=== PATIENT | female | born 2000 | race Caucasian/White ===

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

== ENCOUNTER → 2022-03-06 15:24 | Outpatient (BNVA) | payer MEDICAID, SELFPAY | PROVIDERS: PCP Family Medicine; Visit Provider Family Medicine Adult Medicine | DX: S92.512A Displaced fracture of proximal phalanx of left lesser toe(s), initial encounter for closed fracture (principal); W22.03XA Walked into furniture, initial encounter | CPT/HCPCS: 73630 ==

== ENCOUNTER 2023-02-22 14:02 | Outpatient (CLI) | payer MEDICAID, SELFPAY ==
--- NOTE | 2023-02-22 14:05 | USR_ITS ---
PROCEDURE INFORMATION: Exam: US First Trimester, Transabdominal Exam date and time: 02/22/2023 2:38 PM Age: 22 years old Clinical indication: Screening exam; Routine US, uterus; Additional info: Irregular menstruation TECHNIQUE: Imaging protocol: Real-time transabdominal obstetrical ultrasound of the maternal pelvis and a first trimester , less than 14 weeks 0 days, with image documentation. COMPARISON: US OB follow up [facility] 08/20/2020 10:20 AM FINDINGS: GESTATION: Gestation: Intrauterine gestation. Yolk sac is unremarkable. Embryonic/ heart rate: 171 bpm Extra-embryonic membranes/Placenta: Unremarkable. No subchorionic bleed. Amniotic fluid: Amniotic and extra-amniotic fluid are normal for gestational age. BIOMETRY: Gestational age (AUA): 10 w 4 d [place] length: 36.1 mm. EGA (CRL) is 10 w 4 d MATERNAL: Uterus: Unremarkable. Cervix: Unremarkable. Right ovary/adnexa: Obscured by lack of adequate acoustic window. Left ovary/adnexa: Obscured by lack of adequate acoustic window. Intraperitoneal space: No intraperitoneal free fluid. US/US OB <= 14 weeks fetus [id number] IMPRESSION: Single living IUP.
== END 2023-02-22 14:03 | disposition home or self-care (01) ==
LOC: RAD 14:03
PROVIDERS: PCP Family Medicine; Visit Provider Family Medicine
DX: Z34.91 Encounter for supervision of normal pregnancy, unspecified, first trimester (principal); Z3A.10 10 weeks gestation of pregnancy; N92.6 Irregular menstruation, unspecified
CPT/HCPCS: 76801

== ENCOUNTER 2023-08-27 14:54 | Inpatient (IN) | payer MEDICAID, SELFPAY ==
[2023-08-27] VITALS (50 sets, daily range): BP systolic 115–184; BP diastolic 53–114; PULSE 97–117; RESP 16; TEMP 36.3–36.6; O2SAT 99–100; BMI 47.3
[2023-08-27 13:10] LABS: Basophils % 0.1 %; Eosinophils # 0.1 10^3/uL (0.0-0.8); Eosinophils % 0.7 %; Hematocrit 40.1 % (36-47); Lymphocytes # 1.5 10^3/uL (0.8-4.8); Lymphocytes % 14.8 %; Mean Corpuscular HGB Conc 32.9 g/dL (30-55); Mean Corpuscular Hemoglobin 27.2 pg (27-33); Mean Corpuscular Volume 82.5 fl (85-98); Mean Platelet Volume 11.2 fL (7.4-10.4); Monocytes # 0.5 10^3/uL (0.2-0.9); Monocytes % 4.5 %; Neutrophils # 8.29 10^3/uL (1.8-7.7); Neutrophils % 79.4 %; Nucleated Red Blood Cells % 0 %; Platelet Count 176 10^3/cmm (157-399); Red Blood Count 4.86 10^6/uL (3.85-5.65); Red Cell Distribution Width 14.7 % (12.1-15.1); White Blood Count 10.43 10^3/uL (3.29-11.43)
[2023-08-27 13:21] LABS: Add Urine Microscopic? YES; Bilirubin Urine Neg (Negative); Blood Urine Neg (Negative); Glucose Urine UA Norm (Normal); Ketones Urine Negative (Negative); Leukocyte Esterase Urine 2+ (Negative); Nitrate Urine Negative (Negative); Protein Urine Neg (Negative); Urine Appearance Cloudy (CLEAR); Urine Color Yellow (Yellow); Urobilinogen Urine Norm (Negative); pH Urine 8 (5-7)
[2023-08-27 13:23] LABS: Add Urine Culture? No; Bacteria Urine 1+ /hpf; Squamous Epithelial Cell Urine 15-25 /hpf (0-5); WBC Urine 15-25 /hpf (0-5)
[2023-08-27 13:28] LABS: Alanine Aminotransferase 8 U/L (0-33); Albumin Level 3.5 g/dL (3.5-5.2); Alkaline Phosphatase 168 U/L (35-105); Anion Gap 19.1 (5-19); Aspartate Amino Transferase 12 U/L (0-32); Blood Urea Nitrogen 5 mg/dL (6-20); Calcium 8.8 mg/dL (8.5-10.5); Carbon Dioxide 18 mmol/L (22-29); Chloride 102 mmol/L (98-107); Creatinine Clr Calc Pharmacy 561.7646; Globulin 2.8 g/dL (1.3-4.6); Glomerular Filtration Rate 448.4 mL/min (90-130); Glucose 79 mg/dL (65-115); Osmolality Calculated 276 mOsm/kg (285-295); Potassium 4.1 mmol/L (3.5-5.1); Sodium 135 mmol/L (136-145); Total Bilirubin 0.3 mg/dL (0.15-1.2); Total Protein 6.3 g/dL (6.6-8.7); Uric Acid 4.9 mg/dL (2.4-5.7)
[2023-08-27 13:32] LABS: UPRO/UCREAT Ratio 0.15 mg/mg CR; Urine Creatinine 105 mg/dL (28-217); Urine Protein Random 16 mg/dL
[2023-08-27] MEDS: miSOPROStol 100 mcg tablet 25 MCG VAGINAL (15:35)
--- NOTE | 2023-08-27 18:04 | PM.OPHPUD ---
Labor & Delivery H&P Update Date of Procedure: August 27, 2023 Date H&P Performed: 10/26/20 Admission Diagnosis: 22-year-old 2 para 1-0-0-1 at 37 weeks and 1 day with gestational hypertension presenting for induction. Other information: The patient presented to our office today for a routine visit. During the visit her blood pressure was noted to be elevated with a systolic blood pressure greater than 140. After resting for 15+ minutes we rechecked her blood pressure again and noted that her systolic blood pressure was once again above 140 with the diastolic blood pressure of 106. As result she was sent to the OB department for further evaluation. In the OB department she was noted to have multiple elevated blood pressures including 1 severe blood pressure. As result the decision was made to induce the patient given her gestational age of 37 weeks. Otherwise, her has been relatively unremarkable. Over the last few weeks she has had some borderline blood pressures. Her size has been greater than dates and ultrasound performed on 07/09 did demonstrate an LGA baby. Her blood type is O+. Her antibody screen was negative. She is rubella nonimmune. She passed her 3-hour glucose screen. Her infectious disease profile was within normal limits. Her drug screen was negative. Related Problem List Diagnoses (1) 37 weeks gestation of : The patient's preeclamptic panel was negative. Will proceed with Cytotec 25 mcg x 1 and will adjust we will augment her labor depending on how she responds to that. (2) Gestational hypertension: A&P Assessment and plan (1) 37 weeks gestation of : Status: Acute (2) Gestational hypertension: Status: Acute
[2023-08-27] MEDS: lactated ringers 1,000 ML 999 ML IV (21:16)
[2023-08-27] MEDS: oxytocin 30 UNIT/500 ML BAG IV (21:16)
[2023-08-27] MEDS: ROPivacaine syringe 100 MG/50 ML SYRINGE 10 MG EPIDURAL (22:13)
[2023-08-27] MEDS: dextrose 5%-lactated ringers 1,000 ML 125 ML IV (22:20)
[2023-08-28] VITALS (19 sets, daily range): BP systolic 90–149; BP diastolic 49–93; PULSE 84–141; RESP 16–17; TEMP 36.6–36.9; O2SAT 97–98; BMI 47.3
[2023-08-28] MEDS: ROPivacaine syringe 100 MG/50 ML SYRINGE 10 MG EPIDURAL (01:26)
--- NOTE | 2023-08-28 02:19 | PM.DELIVERY ---
Delivery Note: Date of delivery: August 28, 2023 Pre-delivery diagnoses: 22-year-old 2 para 1-0-0-1 at 37 weeks and 2 days with gestational hypertension Post-delivery diagnoses: Status post spontaneous vaginal delivery Procedure: Spontaneous vaginal delivery Delivering Physician: Ramesh Ye Estimated blood loss (mL): 100 Pre-Delivery Course: Patient presented to the hospital due to elevated blood pressures. After taking several blood pressures in the hospital she was noted to have recurrent elevated blood pressures. A preeclamptic panel was performed and found to be negative. We elected to proceed with induction as a result. Mother was placed on Cytotec 25 mcg x 1. An amniotomy was performed. She was then placed on Pitocin. An epidural was placed. She progressed to complete without difficulty. Delivery: DELIVERY: The patient progressed to complete without difficulty. She delivered a male with a weight of 6 pounds 14 ounces with Apgars of 8, 9. The baby was delivered from the MARILU position. The baby's mouth and nose were suctioned at the site of the perineum. The baby was then completely delivered and placed on the mother's abdomen. The cord was then clamped and cut. There was no nuchal cord. There was no meconium. The placenta and 3 vessel cord were delivered intact shortly thereafter. The perineum and vaginal vault were carefully examined. No lacerations were noted. Both the mother and the baby were in stable condition. History History History 2 Term 1 0 Miscarriages/Ectopic 0 Living Children 1 A&P Assessment and plan (1) Spontaneous vaginal delivery: I anticipate routine care. We will monitor her blood pressures to make sure that she is not progressing into preeclampsia. (2) 37 weeks gestation of : (3) Gestational hypertension: Coding Level of Care Code Acute Code for Chg Fwd Diagnoses Spontaneous vaginal delivery O80 37 weeks gestation of Z3A.37 Gestational hypertension O13.9
[2023-08-28] MEDS: dextrose 5%-lactated ringers 1,000 ML 125 ML IV (02:38)
[2023-08-28] MEDS: HYDROcodone-acetaminophen 5-325 mg Tablet PO ×3 (04:45→17:45)
--- NOTE | 2023-08-28 07:53 | ANES.PREANE2 ---
Pre-Anesthetic Assessment Height/Weight: Height 1.6 m Weight 121.336 kg Temp Pulse Resp BP Pulse Ox O2 Del Method 97.9 F 110 H 16 129/75 99 Room Air 08/27/23 21:36 08/28/23 04:11 08/27/23 12:38 08/28/23 04:11 08/27/23 23:17 08/27/23 15:07 Familial anesthetic complications: none Was Beta Emerald taken within 24 hours: N/A Was Clonidine taken within 24 hours: N/A Social No alcohol and No tobacco Exam alert, oriented x 3, clear to auscultation bilaterally and regular rate & rhythm Airway Submandibular: within normal limits Cervical ROM: within normal limits Mallampati: Class II Dentition: full Anesthetic Plan ASA status: 2 Anesthesia: Regional (specify below) (Labor epidural) Medications/Allergies Home Medications Medication Instructions Recorded Confirmed Last Taken Type 1 tab PO DAILY 08/28/23 08/28/23 08/27/23 History Allergies Allergy/AdvReac Type Severity Reaction Status Date / Time No Known Allergies Allergy Verified 08/28/23 02:33 Current Medications Generic Name Dose Route Start Last Admin Trade Name Freq PRN Reason Stop Dose Admin Hydrocodone Bitart/Acetaminophen 1 - 2 tab 08/28/23 03:01 08/28/23 04:45 Hydrocodone-Acetaminophen 5-325 Mg Tablet PO 1 tab Q6H PRN Administration MODERATE TO SEVERE PAIN PFSH Anesthesia Medical History Fracture of fifth toe, left, closed No pertinent past medical history Denies diabetes, asthma, hypertension, seizures, DVT/PE PCP: None Pain in left foot Surgical History No significant past surgical history Family History Grandmother Diabetes Maternal Denies family history of Colon cancer Ovarian cancer Heart disease Hypercholesteremia Breast cancer Hypertension Uterine cancer Thyroid disease Stroke Social History Smoking and tobacco/nicotine status: never used tobacco/nicotine Substance/Drug Use: never Data Anesthesia 08/27/23 12:50 08/27/23 12:50 Short CBC 08/27/23 Range/Units 12:50 WBC 10.43 (3.29-11.43) 10^3/uL Hgb 13.20 (11.27-16.99) g/dL Hct 40.1 (36-47) % MCV 82.5 L (85-98) fl Plt Count 176 (157-399) 10^3/cmm Neut % (Auto) 79.4 % Neut # (Auto) 8.29 H (1.8-7.7) 10^3/uL BMP 08/27/23 12:50 Sodium 135 L Potassium 4.1 Chloride 102 Carbon Dioxide 18 L BUN 5 L Creatinine 0.2 L Glucose 79 Calcium 8.8 Liver Function 08/27/23 Range/Units 12:50 Total Bilirubin 0.3 (0.15-1.2) mg/dL AST 12 (0-32) U/L ALT 8 (0-33) U/L Alkaline Phosphatase 168 H (35-105) U/L Albumin 3.5 (3.5-5.2) g/dL Urine 08/27/23 Range/Units 12:45 Urine Color Yellow (Yellow) Urine Appearance Cloudy A (CLEAR) Urine pH 8 H (5-7) Ur Specific [place] 1.010 (1.005-1.030) Urine Protein Neg (Negative) Urine Glucose (UA) Norm (Normal) Urine Ketones Negative (Negative) Urine Nitrate Negative (Negative) Urine Bilirubin Neg (Negative) Ur Leukocyte Esterase 2+ H (Negative) Urine RBC None (0-2) /hpf Urine WBC 15-25 H (0-5) /hpf Cardiac Studies: No Data to Display Anesthesia Procedures Epidural Time Out Performed: Yes Consents Signed: Procedure Consent Consent: requested by attending/covering physician, from patient, risks and benefits reviewed and patient agrees to proceed Lumbar Level: L3-L4 Epidural position: sitting Epidural procedure: sterile prep of area, 1% lidocaine to numb the area, 18 g needle, neg for paresthesia, test dose given, 1.5% xylocaine 1:200k epi, placed PCEA, no systemic response, sterile dressing applied and 0.2% Ropiavacaine @ mls/hr (10) Additional Comments: FER at 7cm, cath at 12cm, bolused 5mls of 2% lido
--- NOTE | 2023-08-28 07:55 | ANE.PACU2 ---
Inpatient post-anesthesia follow up: Airway intact: Yes Vital signs: Temperature 97.9 F Pulse Rate 110 Respiratory Rate 16 Blood Pressure 129/75 Pulse Oximetry 99 Oxygen Delivery Me thod Room Air Oxygen Flow Rate Fraction of Inspir ed Oxygen Hydration adequate: Yes Nausea and vomiting: No Pain level: 2 Mental status: Baseline Epidural Start/End: Epidural Start Date: 08/27/23 Epidural Start Time: 22:00 Epidural End Date: 08/28/23 Epidural End Time: 03:00
[2023-08-28] MEDS: ibuprofen 800 mg tablet PO ×3 (08:05→20:34)
[2023-08-28] MEDS: PRENATAL VIT NO.130/IRON/FOLIC 1 EACH TABLET PO (08:05)
[2023-08-28] MEDS: docusate sodium 100 mg Capsule PO ×2 (08:05→17:45)
[2023-08-28 10:28] LABS: Hematocrit 38.8 % (36-47); Mean Corpuscular HGB Conc 32.5 g/dL (30-55); Mean Corpuscular Hemoglobin 26.9 pg (27-33); Mean Corpuscular Volume 82.9 fl (85-98); Mean Platelet Volume 11.6 fL (7.4-10.4); Platelet Count 185 10^3/cmm (157-399); Red Blood Count 4.68 10^6/uL (3.85-5.65); Red Cell Distribution Width 14.6 % (12.1-15.1); White Blood Count 13.08 10^3/uL (3.29-11.43)
[2023-08-29] MEDS: HYDROcodone-acetaminophen 5-325 mg Tablet PO (01:52)
[2023-08-29 05:00] VITALS: BP 130/91; PULSE 92; RESP 16; TEMP 37; O2SAT 98
[2023-08-29] MEDS: docusate sodium 100 mg Capsule PO (08:16)
[2023-08-29] MEDS: ibuprofen 800 mg tablet PO (08:16)
[2023-08-29] MEDS: PRENATAL VIT NO.130/IRON/FOLIC 1 EACH TABLET PO (08:16)
--- NOTE | 2023-08-29 08:52 | PM.OBGYDC ---
Discharge Providers INCIDENT COMMANDER Date of Admission: 08/27/23 14:54 Date of Discharge: 08/29/23 Attending Provider at Admission: Ramesh Ye MD Attending Provider at Discharge: Ramesh Ye MD Diagnoses at Discharge Discharge Diagnosis (1) Spontaneous vaginal delivery: Status: Acute (2) 37 weeks gestation of : Status: Acute (3) Gestational hypertension: Status: Acute Reason for Visit Reason for Visit: BP monitoring Hospital Course Hospital Course The patient presented to the hospital due to gestational hypertension. She was induced. She was placed on Cytotec and Pitocin. An epidural was placed. An amniotomy was performed. She progressed to complete and had an unremarkable delivery of a healthy appearing infant. During her labor she generally had normal blood pressures. she did have some blood pressures that were mildly elevated. She did not have severe blood pressure readings. She had no other symptoms of preeclampsia. She had good urine output. Her bleeding was within normal limits. Her pain was well-controlled. Information Peripartum Data: Infant Delivery Method: Vaginal Physical Exam Narrative: The patient is alert. She appears comfortable. Her heart has a regular rate and rhythm with no murmurs appreciated. Lungs are clear to auscultation bilaterally. Her fundus is firm and below the umbilicus. Urinary Catheter Management: Green: Cath Placed During This Visit: yes, but has since been removed by the nurse Reason for Continuing Indwelling Catheter: Decision to DC Catheter Urinary Catheter Date of Insertion: 08/28/23 Urinary Catheter Time of Insertion: 23:00 Date Urinary Catheter Removed: 08/28/23 Time Urinary Catheter Discontinued: 01:25 History History History 2 Term 1 0 Miscarriages/Ectopic 0 Living Children 1 Discharge Data Studies Completed and Pending Laboratory Results WBC 13.08 10^3/uL (3.29-11.43) H 08/28/23 10:12 RBC 4.68 10^6/uL (3.85-5.65) 08/28/23 10:12 Hgb 12.60 g/dL (11.27-16.99) 08/28/23 10:12 Hct 38.8 % (36-47) 08/28/23 10:12 MCV 82.9 fl (85-98) L 08/28/23 10:12 MCH 26.9 pg (27-33) L 08/28/23 10:12 MCHC 32.5 g/dL (30-55) 08/28/23 10:12 RDW 14.6 % (12.1-15.1) 08/28/23 10:12 Plt Count 185 10^3/cmm (157-399) 08/28/23 10:12 MPV 11.6 fL (7.4-10.4) H 08/28/23 10:12 Neut % (Auto) 79.4 % 08/27/23 12:50 Lymph % (Auto) 14.8 % 08/27/23 12:50 [place] % (Auto) 4.5 % 08/27/23 12:50 Eos % (Auto) 0.7 % 08/27/23 12:50 Baso % (Auto) 0.1 % 08/27/23 12:50 Neut # (Auto) 8.29 10^3/uL (1.8-7.7) H 08/27/23 12:50 Lymph # (Auto) 1.5 10^3/uL (0.8-4.8) 08/27/23 12:50 [place] # (Auto) 0.5 10^3/uL (0.2-0.9) 08/27/23 12:50 Eos # (Auto) 0.1 10^3/uL (0.0-0.8) 08/27/23 12:50 Baso # (Auto) 0.0 10^3/uL (0.0-0.1) 08/27/23 12:50 Nucleated RBC % (auto) 0 % 08/27/23 12:50 Nucleated RBCs # 0.0 /100WBC 08/27/23 12:50 Sodium 135 mmol/L (136-145) L 08/27/23 12:50 Potassium 4.1 mmol/L (3.5-5.1) 08/27/23 12:50 Chloride 102 mmol/L (98-107) 08/27/23 12:50 Carbon Dioxide 18 mmol/L (22-29) L 08/27/23 12:50 Anion Gap 19.1 (5-19) H 08/27/23 12:50 BUN 5 mg/dL (6-20) L 08/27/23 12:50 Creatinine 0.2 mg/dL (0.5-0.9) L 08/27/23 12:50 GFR Calculation 448.4 mL/min (90-130) H 08/27/23 12:50 Glucose 79 mg/dL (65-115) 08/27/23 12:50 Calculated Osmolality 276 mOsm/kg (285-295) L 08/27/23 12:50 Uric Acid 4.9 mg/dL (2.4-5.7) 08/27/23 12:50 Calcium 8.8 mg/dL (8.5-10.5) 08/27/23 12:50 Total Bilirubin 0.3 mg/dL (0.15-1.2) 08/27/23 12:50 AST 12 U/L (0-32) 08/27/23 12:50 ALT 8 U/L (0-33) 08/27/23 12:50 Alkaline Phosphatase 168 U/L (35-105) H 08/27/23 12:50 Total Protein 6.3 g/dL (6.6-8.7) L 08/27/23 12:50 Albumin 3.5 g/dL (3.5-5.2) 08/27/23 12:50 Globulin 2.8 g/dL (1.3-4.6) 08/27/23 12:50 Urine Color Yellow (Yellow) 08/27/23 12:45 Urine Appearance Cloudy (CLEAR) A 08/27/23 12:45 Urine pH 8 (5-7) H 08/27/23 12:45 Ur Specific [place] 1.010 (1.005-1.030) 08/27/23 12:45 Urine Protein Neg (Negative) 08/27/23 12:45 Urine Glucose (UA) Norm (Normal) 08/27/23 12:45 Urine Ketones Negative (Negative) 08/27/23 12:45 Urine Blood Neg (Negative) 08/27/23 12:45 Urine Nitrate Negative (Negative) 08/27/23 12:45 Urine Bilirubin Neg (Negative) 08/27/23 12:45 Urine Urobilinogen Norm mg/dL (Negative) 08/27/23 12:45 Ur Leukocyte Esterase 2+ (Negative) H 08/27/23 12:45 Urine RBC None /hpf (0-2) 08/27/23 12:45 Urine WBC 15-25 /hpf (0-5) H 08/27/23 12:45 Ur Squamous Epith Cells 15-25 /hpf (0-5) H 08/27/23 12:45 Amorphous Sediment Not Reportable 08/27/23 12:45 Urine Bacteria 1+ /hpf (NONE) H 08/27/23 12:45 U Random Total Protein 16 mg/dL 08/27/23 12:45 Urine Creatinine 105 mg/dL (28-217) 08/27/23 12:45 Protein/Creatinin Ratio 0.15 mg/mg CR 08/27/23 12:45 Vitals Last Vital Signs Temp 98.6 F 08/29/23 05:00 Pulse 92 08/29/23 05:00 Resp 16 08/29/23 05:00 BP 130/91 08/29/23 05:00 Pulse Ox 98 08/29/23 05:00 O2 Del Method Room Air 08/29/23 05:00 Results Labs OB ([facility]): Obstetrics US 06/07/23 Blood Type O Positive 03/07/20 Antibody Screen Negative 07/21/20 Hct 38.8 % (36-47) 08/28/23 Hgb 12.60 g/dL (11.27-16.99) 08/28/23 Rho(D) Type Positive 03/07/20 Plt Count 185 10^3/cmm (157-399) 08/28/23 Hep Bs Antigen Non-reactive (Nonreactive) 04/09/20 Hepatitis C Antibody Non-reactive (Nonreactive) 04/09/20 Rubella IgG Antibody 13.6 IU/mL (0.0-10.0) H 04/09/20 RPR Nonreactive (Nonreactive) 04/09/20 HIV 1&2 Ab & HIV 1 Ag Non-reactive (Non-Reactiv) 04/09/20 Glucose 1 Hr 50 gm 134 mg/dL (85-140) 07/21/20 Uric Acid 4.9 mg/dL (2.4-5.7) 08/27/23 Ser , Semi-Qnt 0.50 mIU/mL 12/13/20 HCG, Qual Positive (Negative) H 12/13/20 Urine Opiates Screen Negative ng/mL (Negative) 04/09/20 Ur Barbiturates Screen Negative ng/mL (Negative) 04/09/20 Ur Phencyclidine Scrn Negative ng/mL (Negative) 04/09/20 Ur Amphetamines Screen Negative ng/mL (Negative) 04/09/20 U Benzodiazepines Scrn Negative ng/mL (Negative) 04/09/20 Urine Cocaine Screen Negative ng/mL (Negative) 04/09/20 U Marijuana (THC) Screen Negative ng/mL (Negative) 04/09/20 Micro Urine Specimen 10/11/20 Discharge Plan Discharge Patient Disposition: Home Condition: Stable Prescriptions: New ibuprofen 800 mg Tablet 800 mg PO TID Qty: 45 0RF Continued 1 tab PO DAILY Discharge Orders: Discharge Order (Routine); Ordered 08/29/23 Ordered By: Ramesh Ye Referrals: Ramesh Ye MD [Physician] - 6 Weeks Discharge Diet: Usual diet Discharge Activity: Limit activity as instructed Patient Instructions: Opioid Safety Activity Restrictions/Additional Instructions: We discussed symptoms of preeclampsia. If she has any symptoms that are concerning or her blood pressure is elevated she should return to be evaluated. Discharge Attestations INCIDENT COMMANDER Time Spent in Discharge Care*: less than 30 min Coding Level of Care Code Acute Code for Chg Fwd Diagnoses Spontaneous vaginal delivery O80 37 weeks gestation of Z3A.37 Gestational hypertension O13.9
[2023-08-29 10:40] VITALS: BP 135/89; PULSE 96; RESP 17; TEMP 36.8; O2SAT 97
== END 2023-08-29 10:40 | disposition home or self-care (01) | DRG 807 ==
LOC: OPOB 14:55 → OBGYN 14:55
PROVIDERS: Admitting Provider Family Medicine; PCP Family Medicine; Visit Provider Family Medicine
DX: O13.4 Gestational [pregnancy-induced] hypertension without significant proteinuria, complicating childbirth (principal); Z37.0 Single live birth; Z3A.37 37 weeks gestation of pregnancy
CPT/HCPCS: 36415; 59025; 59409; 80053; 81001; 82570; 84156; 84550; 85025; 85027; 99211; J2590; J2795; J7120; J7121

== ENCOUNTER 2023-09-01 19:56 | Emergency (ER) | payer MEDICAID, SELFPAY ==
[2023-09-01 20:01] VITALS: BP 166/111; PULSE 120; RESP 20; TEMP 38.5; O2SAT 98; BMI 44.3
--- NOTE | 2023-09-01 20:15 | XRR_ITS ---
PROCEDURE INFORMATION: Exam: XR Chest Exam date and time: 09/01/2023 8:26 PM Age: 22 years old Clinical indication: Patient HX: Fever; Post day 4; Abdomen pain TECHNIQUE: Imaging protocol: Radiologic exam of the chest. Views: 1 view. COMPARISON: CR XR chest 2V* [id number] 06/16/2018 5:49 PM FINDINGS: Lungs: Clear, symmetrically inflated lungs. Pleural spaces: No pleural effusion. No pneumothorax. Heart/Mediastinum: Cardiac silhouette is normal in size for technique. Bones/joints: Age appropriate. XR/XR chest 1V portable [id number] IMPRESSION: No acute cardiopulmonary abnormality.
--- NOTE | 2023-09-01 20:16 | USR_ITS ---
PROCEDURE INFORMATION: Exam: US Pelvis, Transvaginal, Non-Obstetric Exam date and time: 09/01/2023 9:21 PM Age: 22 years old Clinical indication: Other: Fever post delivery; Additional info: Abd pain, vag bleeding fever post vag delivery TECHNIQUE: Imaging protocol: Real-time transvaginal pelvic (non-obstetric) ultrasound with image documentation. Transvaginal imaging was used for better evaluation of the endometrium, adnexa, and/or cervix. COMPARISON: US OB transvaginal [facility] 07/16/2020 2:05 PM FINDINGS: Uterus: There is echogenic material in the endometrial canal without significant vascularity. uterus is enlarged as expected measuring 14.9 cm in length. Right ovary/adnexa: Physiologic appearance of the right ovary measuring 2.9 x 3.7 x 3.1 cm. It was difficult to establish blood flow on Doppler images. Left ovary/adnexa: Left ovary could not be visualized despite the use of endovaginal imaging. Urinary bladder: Urinary bladder is limited. Intraperitoneal space: No free fluid. US/US transvaginal [id number] IMPRESSION: 1. Heterogeneous echogenic material in the endometrial canal may reflect retained products of conception despite lack of vascularity on duplex. No findings to suggest gas in the endometrial canal. 2. Right ovary appears physiologic, but blood flow could not be well demonstrated on color Doppler flow imaging, potentially because deep location. There is no visible ovarian edema or adnexal free fluid to suggest torsion.
[2023-09-01 20:31] VITALS: BP 167/95; PULSE 119; RESP 18; O2SAT 100
--- NOTE | 2023-09-01 20:33 | ED_ITS ---
HPI - Fever 2 General: Chief Complaint: Fever Stated Complaint: Fever and abd pain Time Seen by Provider: 09/01/23 20:14 History of Present Illness: 22-year-old female who is 4 days postpar angela. She delivered 08/27 via vaginal delivery, with no complication. She was induced due to high blood pressure. She presents today with a fever, and increased abdominal pain. She had normal Cramping and bleeding following her delivery similar to her monthly period She says. She has not noticed an increase in bleeding, or any other discharge, but does note an increase in pain today with chills, and a fever. No vomiting. Associated symptoms: Reports abdominal pain, chills and nausea; Deny chest pain, confusion, diarrhea, headache(s) or vomiting Review of Systems 2 Const: Reports: fever(s) and chills; Denies: body aches Card: Denies: chest pain or palpitations Resp: Denies: dyspnea, productive cough, non-productive cough or wheezing GI: Reports: abdominal pain and nausea; Denies: vomiting, diarrhea or hematochezia : Denies: difficulty voiding Skin/Breast: Denies: rash Neuro: Denies: headache(s), weakness in extremities, dizziness or confusion PFSH ED 2 PFSH: Medical History Fracture of fifth toe, left, closed Pain in left foot No pertinent past medical history Denies diabetes, asthma, hypertension, seizures, DVT/PE PCP: None Surgical History No significant past surgical history Family History Grandmother Diabetes Maternal Denies family history of Colon cancer Ovarian cancer Heart disease Hypercholesteremia Breast cancer Hypertension Uterine cancer Thyroid disease Stroke Social History Smoking and tobacco/nicotine status: never used tobacco/nicotine Substance/Drug Use: never Physical Exam 2 Const: GENERAL APPEARANCE: cooperative HENMT: COMMON NORMALS: normocephalic, atraumatic and Normal external nose present HEAD & SCALP: normocephalic and atraumatic FACE & SINUS: normal facial exam and face symmetric NOSE: Normal external nose present Eye: COMMON NORMALS: Equal, round and reactive pupils present and EOMs intact bilaterally PUPIL: Yes Equal, round and reactive pupils present Neck/C-Spine: GENERAL: Yes trachea midline Chest: CHEST: Yes Symmetrical chest wall rise Resp: COMMON NORMALS: normal respiratory effort, No retractions, No use of accessory muscles and clear to auscultation bilaterally AUSCULTATION: clear to auscultation bilaterally Cardio: COMMON NORMALS: regular rate and regular rhythm RATE: regular rate RHYTHM: regular rhythm GI: COMMON NORMALS: Normal to inspection, nondistended, normoactive bowel sounds present PALPATION: Yes Tenderness to palpation present (GI) (Generalized) Extremity: COMMON NORMALS: no pedal edema Neuro: CAMILO COMA SCALE: document GCS findings [place] coma scale eye opening: Spontaneous [place] coma scale verbal response: Orientated [place] coma scale motor response: Obey commands [place] coma scale total score: 15 S ENSORY EXAM: Yes extremities (intact) Psych: COMMON NORMALS: speech normal SPEECH: Yes normal speech Skin: COMMON NORMALS: no rashes or lesions noted GENERAL SKIN EXAM: no rashes or lesions noted Course 2 Vital Signs: Vital signs: Vital Signs Temperature 99.3 F 09/01/23 22:22 Pulse Rate 102 H 09/01/23 23:07 Respiratory Rate 18 09/01/23 23:07 Blood Pressure 146/100 09/01/23 23:07 Pulse Oximetry 98 09/01/23 23:07 Oxygen Delivery Me thod Room Air 09/01/23 22:22 MDM - Fever Medical Decision Making 22-year-old female with mildly increased abdominal pain, and a fever at home. Temperature is down to 99.3 here. White blood cell count is 8. CRP is 42. She does have a 2+ leukocyte esterase urine, but only 5-10 whites present. Chest x- ray is negative. Other laboratory is not remarkable. Transvaginal ultrasound reveals heterogeneous echogenic material in the endometrial canal, but there is no increased vascularity to suggest definite retained products. There is mild thickening of the endometrium, with no hypervascularity there either. I spoke with the patient's deputy director on-call. She has received IV fluid, and 3.375 g of Zosyn IV here. He notes with no leukocytosis, and findings on ultrasound, would treat for mild endometritis. Augmentin should cover. Patient counseled. She was also counseled on need for urgent return if she has fever despite 2-3 more doses of antibiotics, worsening pain or worsening bleeding or discharge at all. She understands. Lab Data 09/01/23 20:11 09/01/23 20:11 Radiology Impressions Chest X-Ray 09/01/23 20:15 IMPRESSION: No acute cardiopulmonary abnormality. Transvaginal US 09/01/23 20:16 IMPRESSION: 1. Heterogeneous echogenic material in the endometrial canal may reflect retained products of conception despite lack of vascularity on duplex. No findings to suggest gas in the endometrial canal. 2. Right ovary appears physiologic, but blood flow could not be well demonstrated on color Doppler flow imaging, potentially because deep location. There is no visible ovarian edema or adnexal free fluid to suggest torsion. Laboratory Results WBC 8.07 10^3/uL (3.29-11.43) 09/01/23 20:11 RBC 4.80 10^6/uL (3.85-5.65) 09/01/23 20:11 Hgb 13.00 g/dL (11.27-16.99) 09/01/23 20:11 Hct 39.9 % (36-47) 09/01/23 20:11 MCV 83.1 fl (85-98) L 09/01/23 20:11 MCH 27.1 pg (27-33) 09/01/23 20:11 MCHC 32.6 g/dL (30-55) 09/01/23 20:11 RDW 13.9 % (12.1-15.1) 09/01/23 20:11 Plt Count 205 10^3/cmm (157-399) 09/01/23 20:11 MPV 11.0 fL (7.4-10.4) H 09/01/23 20:11 Neut % (Auto) 80.9 % 09/01/23 20:11 Lymph % (Auto) 10.4 % 09/01/23 20:11 [place] % (Auto) 5.6 % 09/01/23 20:11 Eos % (Auto) 2.6 % 09/01/23 20:11 Baso % (Auto) 0.1 % 09/01/23 20:11 Neut # (Auto) 6.53 10^3/uL (1.8-7.7) 09/01/23 20:11 Lymph # (Auto) 0.8 10^3/uL (0.8-4.8) 09/01/23 20:11 [place] # (Auto) 0.5 10^3/uL (0.2-0.9) 09/01/23 20:11 Eos # (Auto) 0.2 10^3/uL (0.0-0.8) 09/01/23 20:11 Baso # (Auto) 0.0 10^3/uL (0.0-0.1) 09/01/23 20:11 Nucleated RBC % (auto) 0 % 09/01/23 20:11 Nucleated RBCs # 0.0 /100WBC 09/01/23 20:11 Sodium 136 mmol/L (136-145) 09/01/23 20:11 Potassium 3.8 mmol/L (3.5-5.1) 09/01/23 20:11 Chloride 103 mmol/L (98-107) 09/01/23 20:11 Carbon Dioxide 23 mmol/L (22-29) 09/01/23 20:11 Anion Gap 13.8 (5-19) 09/01/23 20:11 BUN 7 mg/dL (6-20) 09/01/23 20:11 Creatinine 0.4 mg/dL (0.5-0.9) L 09/01/23 20:11 GFR Calculation 201.5 mL/min (90-130) H 09/01/23 20:11 Glucose 81 mg/dL (65-115) 09/01/23 20:11 Calculated Osmolality 279 mOsm/kg (285-295) L 09/01/23 20:11 Lactic Acid 1.3 mmol/L (0.5-2.2) 09/01/23 20:11 Calcium 8.7 mg/dL (8.5-10.5) 09/01/23 20:11 Total Bilirubin 0.2 mg/dL (0.15-1.2) 09/01/23 20:11 AST 17 U/L (0-32) 09/01/23 20:11 ALT 20 U/L (0-33) 09/01/23 20:11 Alkaline Phosphatase 119 U/L (35-105) H 09/01/23 20:11 C-Reactive Protein 42.1 mg/L (0.0-4.9) H 09/01/23 20:11 Total Protein 6.5 g/dL (6.6-8.7) L 09/01/23 20:11 Albumin 3.5 g/dL (3.5-5.2) 09/01/23 20:11 Globulin 3.0 g/dL (1.3-4.6) 09/01/23 20:11 Lipase 12 U/L (13-60) L 09/01/23 20:11 Ser , Semi-Qnt 343.40 mIU/mL 09/01/23 20:11 Urine Color Yellow (Yellow) 09/01/23 20:45 Urine Appearance Cloudy (CLEAR) A 09/01/23 20:45 Urine pH 8 (5-7) H 09/01/23 20:45 Ur Specific [place] 1.005 (1.005-1.030) 09/01/23 20:45 Urine Protein Trace (Negative) 09/01/23 20:45 Urine Glucose (UA) Norm (Normal) 09/01/23 20:45 Urine Ketones 1+ (Negative) H 09/01/23 20:45 Urine Blood 3+ (Negative) H 09/01/23 20:45 Urine Nitrate Negative (Negative) 09/01/23 20:45 Urine Bilirubin 1+ (Negative) H 09/01/23 20:45 Urine Urobilinogen 1 mg/dL (Negative) H 09/01/23 20:45 Ur Leukocyte Esterase 2+ (Negative) H 09/01/23 20:45 Urine RBC 50-80 /hpf (0-2) H 09/01/23 20:45 Urine WBC 5-10 /hpf (0-5) H 09/01/23 20:45 Ur Squamous Epith Cells 5-10 /hpf (0-5) H 09/01/23 20:45 Amorphous Sediment Not Reportable 09/01/23 20:45 Urine Bacteria 2+ /hpf (NONE) H 09/01/23 20:45 Urine Mucus Trace /hpf 09/01/23 20:45 Blood Type O Positive 09/01/23 20:26 Rho(D) Type Rh positive 09/01/23 20:26 Antibody Screen Negative 09/01/23 20:26 All radiology interpretation(s) finalized by discharge Discharge Plan Discharge Patient Disposition: Home Clinical Impression: Acute endometritis Condition: Stable Prescriptions: New amoxicillin-pot clavulanate 875-125 mg tablet 1 tab PO BID Qty: 20 0RF No Action 1 tab PO DAILY ibuprofen 800 mg Tablet 800 mg PO TID Qty: 45 0RF Discharge Orders: Discharge ED (Routine); Ordered 09/01/23 Ordered By: Chepe Baxter Referrals: Reyna Chu DO [Primary Care Provider] - Patient Instructions: Endometritis (ED), Opioid Safety, Pain Management Activity Restrictions/Additional Instructions: Monitor and treat your fever closely. Return immediately to the emergency department, for continued fever greater than 100 despite 2-3 more doses of antibiotics. Return also for worsening pain, worsening vaginal bleeding, any vaginal discharge, vomiting liquids or medications, any other concerning symptoms. Coding Level of Care Code ED [employer] Operator for Chey Velasquez
[2023-09-01 20:37] LABS: Basophils % 0.1 %; Eosinophils # 0.2 10^3/uL (0.0-0.8); Eosinophils % 2.6 %; Hematocrit 39.9 % (36-47); Lymphocytes # 0.8 10^3/uL (0.8-4.8); Lymphocytes % 10.4 %; Mean Corpuscular HGB Conc 32.6 g/dL (30-55); Mean Corpuscular Hemoglobin 27.1 pg (27-33); Mean Corpuscular Volume 83.1 fl (85-98); Monocytes # 0.5 10^3/uL (0.2-0.9); Monocytes % 5.6 %; Neutrophils # 6.53 10^3/uL (1.8-7.7); Neutrophils % 80.9 %; Nucleated Red Blood Cells % 0 %; Platelet Count 205 10^3/cmm (157-399); Red Cell Distribution Width 13.9 % (12.1-15.1); White Blood Count 8.07 10^3/uL (3.29-11.43)
[2023-09-01] MEDS: piperacillin-tazobactam 3.375 GM in sodium chloride 0.9% (plus) 50 ML IV (20:47)
[2023-09-01 20:50] VITALS: BP 150/96; PULSE 117; RESP 18; O2SAT 100
[2023-09-01 20:57] LABS: Lactic Sepsis W/Reflex 1.3 mmol/L (0.5-2.2)
[2023-09-01 21:09] LABS: Alanine Aminotransferase 20 U/L (0-33); Albumin Level 3.5 g/dL (3.5-5.2); Alkaline Phosphatase 119 U/L (35-105); Anion Gap 13.8 (5-19); Aspartate Amino Transferase 17 U/L (0-32); Blood Urea Nitrogen 7 mg/dL (6-20); C Reactive Protein 42.1 mg/L (0.0-4.9); Calcium 8.7 mg/dL (8.5-10.5); Carbon Dioxide 23 mmol/L (22-29); Chloride 103 mmol/L (98-107); Creatinine Clr Calc Pharmacy 269.8584; Glomerular Filtration Rate 201.5 mL/min (90-130); Glucose 81 mg/dL (65-115); Lipase 12 U/L (13-60); Osmolality Calculated 279 mOsm/kg (285-295); Potassium 3.8 mmol/L (3.5-5.1); Sodium 136 mmol/L (136-145); Total Bilirubin 0.2 mg/dL (0.15-1.2); Total Protein 6.5 g/dL (6.6-8.7)
[2023-09-01 21:17] LABS: Add Urine Microscopic? YES; Bilirubin Urine 1+ (Negative); Blood Urine 3+ (Negative); Glucose Urine UA Norm (Normal); Ketones Urine 1+ (Negative); Leukocyte Esterase Urine 2+ (Negative); Nitrate Urine Negative (Negative); Protein Urine Trace (Negative); RBC Urine 50-80 /hpf (0-2); Specific Gravity, Urine 1.005 (1.005-1.030); Urine Appearance Cloudy (CLEAR); Urine Color Yellow (Yellow); Urobilinogen Urine 1 mg/dL (Negative); pH Urine 8 (5-7)
[2023-09-01 21:18] LABS: Add Urine Culture? Yes; Bacteria Urine 2+ /hpf; Mucus Urine TRACE /hpf
[2023-09-01 22:22] VITALS: BP 120/85; PULSE 113; RESP 18; TEMP 37.4; O2SAT 100
[2023-09-01] MEDS: acetaminophen 500 mg Tablet 1000 MG PO (22:58)
[2023-09-01 23:07] VITALS: BP 146/100; PULSE 102; RESP 18; O2SAT 98
[2023-09-01] MEDS: amoxicillin-clav 875-125 mg Tablet 1 TAB PO (23:08)
== END 2023-09-01 23:08 | disposition home or self-care (01) ==
PROVIDERS: Emergency Provider Emergency Medicine; PCP Family Medicine
DX: N71.0 Acute inflammatory disease of uterus (principal)
CPT/HCPCS: 36415; 71045; 76830; 80053; 81001; 83605; 83690; 84702; 85025; 86140; 86850; 86900; 87040; 87086; 96365; 96366; 99285; J2543

== ENCOUNTER 2023-09-02 20:29 | Emergency (ER) | payer MEDICAID, SELFPAY ==
[2023-09-02 20:41] VITALS: BP 152/115; PULSE 98; RESP 18; TEMP 37.4; O2SAT 98
[2023-09-02 21:04] VITALS: BP 142/101; PULSE 100; RESP 21; O2SAT 98
--- NOTE | 2023-09-02 21:05 | ED_ITS ---
Documented by User: NEHA Polo 09/03/23 00:15 HPI - Fever 2 General: Chief Complaint: Fever Stated Complaint: post , hill sent to see @9 Time Seen by Provider: 09/02/23 21:00 History of Present Illness: 21-year-old female comes in today for re evaluation. Patient was seen last night and diagnosed with acute endometriosis secondary to post delivery. Patient reports feeling somewhat better today but started having a fever this evening and taken some Tylenol prior to coming into the ER. Patient only got her first dose of Augmentin this morning. Besides the medication she was given earlier. Review of Systems 2 General: Reports: 10 or more systems reviewed and unremarkable except in HPI and below Const: Reports: fever(s) PFSH ED 2 PFSH: Medical History Fracture of fifth toe, left, closed Pain in left foot No pertinent past medical history Denies diabetes, asthma, hypertension, seizures, DVT/PE PCP: None Surgical History No significant past surgical history Family History Grandmother Diabetes Maternal Denies family history of Colon cancer Ovarian cancer Heart disease Hypercholesteremia Breast cancer Hypertension Uterine cancer Thyroid disease Stroke Social History Smoking and tobacco/nicotine status: never used tobacco/nicotine Substance/Drug Use: never Physical Exam 2 Const: COMMON NORMALS: alert HENMT: COMMON NORMALS: atraumatic HEAD & SCALP: atraumatic Neck/C-Spine: COMMON NORMALS: no meningeal signs Resp: COMMON NORMALS: normal respiratory effort and clear to auscultation bilaterally AUSCULTATION: clear to auscultation bilaterally Cardio: COMMON NORMALS: regular rate and regular rhythm RATE: regular rate RHYTHM: regular rhythm GI: COMMON NORMALS: Soft to palpation and non-tender PALPATION: Yes Soft to palpation Back/Pelvis: COMMON NORMALS: thoracic and lumbar spine normal to inspection Extremity: COMMON NORMALS: normal to inspection Neuro: SENSORIUM/ORIENTATION: Yes alert MENINGEAL SIGNS: Yes no meningeal signs Skin: COMMON NORMALS: turgor normal GENERAL SKIN EXAM: turgor normal Course 2 Vital Signs: Vital signs: Vital Signs Temperature 99.3 F 09/02/23 20:41 Pulse Rate 87 09/03/23 00:52 Respiratory Rate 18 09/03/23 00:52 Blood Pressure 128/72 09/03/23 00:52 Pulse Oximetry 98 09/03/23 00:52 Oxygen Delivery Me thod Room Air 09/02/23 23:57 MDM - Fever Medical Decision Making 22-year-old female diagnosed with acute endometriosis last night secondary to . Returns tonight for reevaluation by [employer] HOUSE ATTENDANT, Dr. Hill. Patient appears nontoxic. Patient reports improvement of symptoms. Vital signs are normal except for some mild elevation in blood pressure at 142/101. 2099, Dr. Hill has been notified of patient's arrival. 2207, there was a misunderstanding and the message was relayed to Dr. Hill, he did not realize that this was a patient that was delivered through the [facility]. He would graciously see the patient but would have to be referred through their group. Dr. Baxter, attending ER physician, recommended we repeat the labs and we will consult again with Dr. Sandhu who is on-call for the [facility]. We reviewed with the patient the mistake that was made in the miscommunication. Patient reports understanding and agreed to plan. Patient's main concern today was her blood pressure being elevated besides the lower abdominal pain. 0014, laboratory values were unremarkable. Patient's blood pressure came down after 30 mg of nifedipine XL was given to patient. Patient will be continued on nifedipine daily at home with recommendations to following up with Roylance's office in the morning for appointment and follow-up. Patient knows to return to the ER for worsening symptoms. Lab Data 09/02/23 23:06 09/02/23 23:06 Laboratory Results WBC 5.92 10^3/uL (3.29-11.43) 09/02/23 23:06 RBC 4.71 10^6/uL (3.85-5.65) 09/02/23 23:06 Hgb 12.90 g/dL (11.27-16.99) 09/02/23 23:06 Hct 40.4 % (36-47) 09/02/23 23:06 MCV 85.8 fl (85-98) 09/02/23 23:06 MCH 27.4 pg (27-33) 09/02/23 23:06 MCHC 31.9 g/dL (30-55) 09/02/23 23:06 RDW 14.1 % (12.1-15.1) 09/02/23 23:06 Plt Count 224 10^3/cmm (157-399) 09/02/23 23:06 MPV 11.4 fL (7.4-10.4) H 09/02/23 23:06 Neut % (Auto) 71.7 % 09/02/23 23:06 Lymph % (Auto) 20.1 % 09/02/23 23:06 [place] % (Auto) 6.6 % 09/02/23 23:06 Eos % (Auto) 1.2 % 09/02/23 23:06 Baso % (Auto) 0.2 % 09/02/23 23:06 Neut # (Auto) 4.25 10^3/uL (1.8-7.7) 09/02/23 23:06 Lymph # (Auto) 1.2 10^3/uL (0.8-4.8) 09/02/23 23:06 [place] # (Auto) 0.4 10^3/uL (0.2-0.9) 09/02/23 23:06 Eos # (Auto) 0.1 10^3/uL (0.0-0.8) 09/02/23 23:06 Baso # (Auto) 0.0 10^3/uL (0.0-0.1) 09/02/23 23:06 Nucleated RBC % (auto) 0 % 09/02/23 23:06 Nucleated RBCs # 0.0 /100WBC 09/02/23 23:06 Sodium 137 mmol/L (136-145) 09/02/23 23:06 Potassium 3.3 mmol/L (3.5-5.1) L 09/02/23 23:06 Chloride 104 mmol/L (98-107) 09/02/23 23:06 Carbon Dioxide 20 mmol/L (22-29) L 09/02/23 23:06 Anion Gap 16.3 (5-19) 09/02/23 23:06 BUN 8 mg/dL (6-20) 09/02/23 23:06 Creatinine 0.4 mg/dL (0.5-0.9) L 09/02/23 23:06 GFR Calculation 201.5 mL/min (90-130) H 09/02/23 23:06 Glucose 79 mg/dL (65-115) 09/02/23 23:06 Calculated Osmolality 281 mOsm/kg (285-295) L 09/02/23 23:06 Lactic Acid 0.7 mmol/L (0.5-2.2) 09/02/23 23:06 Calcium 8.6 mg/dL (8.5-10.5) 09/02/23 23:06 Total Bilirubin 0.3 mg/dL (0.15-1.2) 09/02/23 23:06 AST 15 U/L (0-32) 09/02/23 23:06 ALT 19 U/L (0-33) 09/02/23 23:06 Alkaline Phosphatase 113 U/L (35-105) H 09/02/23 23:06 Total Protein 6.4 g/dL (6.6-8.7) L 09/02/23 23:06 Albumin 3.3 g/dL (3.5-5.2) L 09/02/23 23:06 Globulin 3.1 g/dL (1.3-4.6) 09/02/23 23:06 Urine Color Yellow (Yellow) 09/02/23 23:28 Urine Appearance Clear (CLEAR) 09/02/23 23:28 Urine pH 7 (5-7) 09/02/23 23:28 Ur Specific [place] 1.001 (1.005-1.030) L 09/02/23 23:28 Urine Protein Neg (Negative) 09/02/23 23:28 Urine Glucose (UA) Norm (Normal) 09/02/23 23:28 Urine Ketones 1+ (Negative) H 09/02/23 23:28 Urine Blood 2+ (Negative) H 09/02/23 23:28 Urine Nitrate Negative (Negative) 09/02/23 23:28 Urine Bilirubin Neg (Negative) 09/02/23 23:28 Urine Urobilinogen 1 mg/dL (Negative) H 09/02/23 23:28 Ur Leukocyte Esterase Negative (Negative) 09/02/23 23:28 Urine RBC 0-4 /hpf (0-2) H 09/02/23 23:28 Urine WBC None /hpf (0-5) 09/02/23 23:28 Ur Squamous Epith Cells 0-4 /hpf (0-5) H 09/02/23 23:28 Amorphous Sediment Not Reportable 09/02/23 23:28 Urine Bacteria Trace /hpf (NONE) 09/02/23 23:28 No radiology studies performed this visit Discharge Plan Discharge Patient Disposition: Home Clinical Impression: hypertension, Acute endometritis Condition: Stable Prescriptions: New nifedipine 30 mg tablet extended release 30 mg PO DAILY Qty: 30 0RF No Action amoxicillin-pot clavulanate 875-125 mg tablet 1 tab PO BID Qty: 20 0RF 1 tab PO DAILY ibuprofen 800 mg Tablet 800 mg PO TID Qty: 45 0RF Discharge Orders: Discharge ED (Routine); Ordered 09/03/23 Ordered By: Ulysses Petersen Referrals: Reyna Chu DO [Primary Care Provider] - Discharge Diet: Usual diet Discharge Activity: Increase activity as tolerated Patient Instructions: Hypertension (ED) Activity Restrictions/Additional Instructions: Call Dr. Ye's office in the morning for a follow-up appointment. Take nifedipine ER 30 mg daily to better control your blood pressure. Eat a healthy diet. Continue with antibiotics as directed. Coding Level of Care Code ED Real Estate Processor for Chg Fwd Documented by User: Chepe Baxter DO 09/04/23 00:51 HPI - Fever 2 General: Chief Complaint: Fever Stated Complaint: post , hill sent to see @9 Time Seen by Provider: 09/02/23 21:00 PFSH ED 2 PFSH: Medical History Fracture of fifth toe, left, closed Pain in left foot No pertinent past medical history Denies diabetes, asthma, hypertension, seizures, DVT/PE PCP: None Surgical History No significant past surgical history Family History Grandmother Diabetes Maternal Denies family history of Colon cancer Ovarian cancer Heart disease Hypercholesteremia Breast cancer Hypertension Uterine cancer Thyroid disease Stroke Social History Smoking and tobacco/nicotine status: never used tobacco/nicotine Substance/Drug Use: never Course 2 Vital Signs: Vital signs: Vital Signs Temperature 99.3 F 09/02/23 20:41 Pulse Rate 87 09/03/23 00:52 Respiratory Rate 18 09/03/23 00:52 Blood Pressure 128/72 09/03/23 00:52 Pulse Oximetry 98 09/03/23 00:52 Oxygen Delivery Me thod Room Air 09/02/23 23:57 MDM - Fever Medical Decision Making 22-year-old female diagnosed with acute endometriosis last night secondary to . Returns tonight for reevaluation by [employer] ATTENDANT, Dr. Hill. Patient appears nontoxic. Patient reports improvement of symptoms. Vital signs are normal except for some mild elevation in blood pressure at 142/101. 2100, Dr. Hill has been notified of patient's arrival. 2207, there was a misunderstanding and the message was relayed to Dr. Hill, he did not realize that this was a patient that was delivered through the [facility]. He would graciously see the patient but would have to be referred through their group. Dr. Baxter, attending ER physician, recommended we repeat the labs and we will consult again with Dr. Sandhu who is on-call for the [facility] group. We reviewed with the patient the mistake that was made in the miscommunication. Patient reports understanding and agreed to plan. Patient's main concern today was her blood pressure being elevated besides the lower abdominal pain. 0014, laboratory values were unremarkable. Patient's blood pressure came down after 30 mg of nifedipine XL was given to patient. Patient will be continued on nifedipine daily at home with recommendations to following up with Roylg[facility]'s office in the morning for appointment and follow-up. Patient knows to return to the ER for worsening symptoms. This patient was originally seen by NEHA Palma. I agree with his history, evaluation, diagnosis and treatment. Lab Data 09/02/23 23:06 09/02/23 23:06 Laboratory Results WBC 5.92 10^3/uL (3.29-11.43) 09/02/23 23:06 RBC 4.71 10^6/uL (3.85-5.65) 09/02/23 23:06 Hgb 12.90 g/dL (11.27-16.99) 09/02/23 23:06 Hct 40.4 % (36-47) 09/02/23 23:06 MCV 85.8 fl (85-98) 09/02/23 23:06 MCH 27.4 pg (27-33) 09/02/23 23:06 MCHC 31.9 g/dL (30-55) 09/02/23 23:06 RDW 14.1 % (12.1-15.1) 09/02/23 23:06 Plt Count 224 10^3/cmm (157-399) 09/02/23 23:06 MPV 11.4 fL (7.4-10.4) H 09/02/23 23:06 Neut % (Auto) 71.7 % 09/02/23 23:06 Lymph % (Auto) 20.1 % 09/02/23 23:06 [place] % (Auto) 6.6 % 09/02/23 23:06 Eos % (Auto) 1.2 % 09/02/23 23:06 Baso % (Auto) 0.2 % 09/02/23 23:06 Neut # (Auto) 4.25 10^3/uL (1.8-7.7) 09/02/23 23:06 Lymph # (Auto) 1.2 10^3/uL (0.8-4.8) 09/02/23 23:06 [place] # (Auto) 0.4 10^3/uL (0.2-0.9) 09/02/23 23:06 Eos # (Auto) 0.1 10^3/uL (0.0-0.8) 09/02/23 23:06 Baso # (Auto) 0.0 10^3/uL (0.0-0.1) 09/02/23 23:06 Nucleated RBC % (auto) 0 % 09/02/23 23:06 Nucleated RBCs # 0.0 /100WBC 09/02/23 23:06 Sodium 137 mmol/L (136-145) 09/02/23 23:06 Potassium 3.3 mmol/L (3.5-5.1) L 09/02/23 23:06 Chloride 104 mmol/L (98-107) 09/02/23 23:06 Carbon Dioxide 20 mmol/L (22-29) L 09/02/23 23:06 Anion Gap 16.3 (5-19) 09/02/23 23:06 BUN 8 mg/dL (6-20) 09/02/23 23:06 Creatinine 0.4 mg/dL (0.5-0.9) L 09/02/23 23:06 GFR Calculation 201.5 mL/min (90-130) H 09/02/23 23:06 Glucose 79 mg/dL (65-115) 09/02/23 23:06 Calculated Osmolality 281 mOsm/kg (285-295) L 09/02/23 23:06 Lactic Acid 0.7 mmol/L (0.5-2.2) 09/02/23 23:06 Calcium 8.6 mg/dL (8.5-10.5) 09/02/23 23:06 Total Bilirubin 0.3 mg/dL (0.15-1.2) 09/02/23 23:06 AST 15 U/L (0-32) 09/02/23 23:06 ALT 19 U/L (0-33) 09/02/23 23:06 Alkaline Phosphatase 113 U/L (35-105) H 09/02/23 23:06 Total Protein 6.4 g/dL (6.6-8.7) L 09/02/23 23:06 Albumin 3.3 g/dL (3.5-5.2) L 09/02/23 23:06 Globulin 3.1 g/dL (1.3-4.6) 09/02/23 23:06 Urine Color Yellow (Yellow) 09/02/23 23:28 Urine Appearance Clear (CLEAR) 09/02/23 23:28 Urine pH 7 (5-7) 09/02/23 23:28 Ur Specific [place] 1.001 (1.005-1.030) L 09/02/23 23:28 Urine Protein Neg (Negative) 09/02/23 23:28 Urine Glucose (UA) Norm (Normal) 09/02/23 23:28 Urine Ketones 1+ (Negative) H 09/02/23 23:28 Urine Blood 2+ (Negative) H 09/02/23 23:28 Urine Nitrate Negative (Negative) 09/02/23 23:28 Urine Bilirubin Neg (Negative) 09/02/23 23:28 Urine Urobilinogen 1 mg/dL (Negative) H 09/02/23 23:28 Ur Leukocyte Esterase Negative (Negative) 09/02/23 23:28 Urine RBC 0-4 /hpf (0-2) H 09/02/23 23:28 Urine WBC None /hpf (0-5) 09/02/23 23:28 Ur Squamous Epith Cells 0-4 /hpf (0-5) H 09/02/23 23:28 Amorphous Sediment Not Reportable 09/02/23 23:28 Urine Bacteria Trace /hpf (NONE) 09/02/23 23:28 Discharge Plan Discharge Patient Disposition: Home Clinical Impression: hypertension, Acute endometritis Condition: Stable Prescriptions: New nifedipine 30 mg tablet extended release 30 mg PO DAILY Qty: 30 0RF No Action amoxicillin-pot clavulanate 875-125 mg tablet 1 tab PO BID Qty: 20 0RF 1 tab PO DAILY ibuprofen 800 mg Tablet 800 mg PO TID Qty: 45 0RF Discharge Orders: Discharge ED (Routine); Ordered 09/03/23 Ordered By: Ulysses Petersen Referrals: Reyna Chu DO [Primary Care Provider] - Discharge Diet: Usual diet Discharge Activity: Increase activity as tolerated Patient Instructions: Hypertension (ED) Activity Restrictions/Additional Instructions: Call Dr. Ye's office in the morning for a follow-up appointment. Take nifedipine ER 30 mg daily to better control your blood pressure. Eat a healthy diet. Continue with antibiotics as directed. Coding Level of Care Code ED Real Estate Processor for Chey Velasquez
[2023-09-02] MEDS: amoxicillin-clav 875-125 mg Tablet 1 TAB PO (21:28)
[2023-09-02 21:30] VITALS: BP 152/101; PULSE 103; O2SAT 99
[2023-09-02 22:00] VITALS: BP 141/92; PULSE 88; O2SAT 98
[2023-09-02 23:29] VITALS: BP 152/92; PULSE 68; RESP 18; O2SAT 98
[2023-09-02 23:32] LABS: Basophils % 0.2 %; Eosinophils # 0.1 10^3/uL (0.0-0.8); Eosinophils % 1.2 %; Hematocrit 40.4 % (36-47); Lymphocytes # 1.2 10^3/uL (0.8-4.8); Lymphocytes % 20.1 %; Mean Corpuscular HGB Conc 31.9 g/dL (30-55); Mean Corpuscular Hemoglobin 27.4 pg (27-33); Mean Corpuscular Volume 85.8 fl (85-98); Mean Platelet Volume 11.4 fL (7.4-10.4); Monocytes # 0.4 10^3/uL (0.2-0.9); Monocytes % 6.6 %; Neutrophils # 4.25 10^3/uL (1.8-7.7); Neutrophils % 71.7 %; Nucleated Red Blood Cells % 0 %; Platelet Count 224 10^3/cmm (157-399); Red Blood Count 4.71 10^6/uL (3.85-5.65); Red Cell Distribution Width 14.1 % (12.1-15.1); White Blood Count 5.92 10^3/uL (3.29-11.43)
--- NOTE | 2023-09-02 23:32 | PC.NURSE ---
assumed care of the pt at this time
[2023-09-02] MEDS: NIFEdipine ER (24 hr) 30 mg Tablet PO (23:33)
[2023-09-02 23:51] LABS: Specific Gravity, Urine 1.001 (1.005-1.030); Urine Appearance Clear (CLEAR); Urine Color Yellow (Yellow); pH Urine 7 (5-7)
[2023-09-02 23:52] LABS: Add Urine Culture? No; Add Urine Microscopic? YES; Bacteria Urine TRACE /hpf; Bilirubin Urine Neg (Negative); Blood Urine 2+ (Negative); Glucose Urine UA Norm (Normal); Ketones Urine 1+ (Negative); Leukocyte Esterase Urine Negative (Negative); Nitrate Urine Negative (Negative); Protein Urine Neg (Negative); RBC Urine 0-4 /hpf (0-2); Squamous Epithelial Cell Urine 0-4 /hpf (0-5); Urobilinogen Urine 1 mg/dL (Negative)
[2023-09-02 23:56] LABS: Alanine Aminotransferase 19 U/L (0-33); Albumin Level 3.3 g/dL (3.5-5.2); Alkaline Phosphatase 113 U/L (35-105); Anion Gap 16.3 (5-19); Aspartate Amino Transferase 15 U/L (0-32); Blood Urea Nitrogen 8 mg/dL (6-20); Calcium 8.6 mg/dL (8.5-10.5); Carbon Dioxide 20 mmol/L (22-29); Chloride 104 mmol/L (98-107); Globulin 3.1 g/dL (1.3-4.6); Glomerular Filtration Rate 201.5 mL/min (90-130); Glucose 79 mg/dL (65-115); Osmolality Calculated 281 mOsm/kg (285-295); Potassium 3.3 mmol/L (3.5-5.1); Sodium 137 mmol/L (136-145); Total Bilirubin 0.3 mg/dL (0.15-1.2); Total Protein 6.4 g/dL (6.6-8.7)
[2023-09-02 23:57] VITALS: BP 132/83; PULSE 90; RESP 18; O2SAT 98
[2023-09-02 23:57] LABS: Lactic Sepsis W/Reflex 0.7 mmol/L (0.5-2.2)
[2023-09-03] LABS: Creatinine Clr Calc Pharmacy 269.7305
[2023-09-03 00:52] VITALS: BP 128/72; PULSE 87; RESP 18; O2SAT 98
== END 2023-09-03 00:53 | disposition home or self-care (01) ==
PROVIDERS: Emergency Provider Nurse Practitioner Family; PCP Family Medicine
DX: O16.5 Unspecified maternal hypertension, complicating the puerperium (principal); O86.12 Endometritis following delivery
CPT/HCPCS: 36415; 51701; 80053; 81001; 83605; 85025; 99283

== ENCOUNTER 2023-12-24 16:19 | Outpatient (CLI) | payer MEDICAID, SELFPAY ==
--- NOTE | 2023-12-24 17:11 | MR_ITS ---
WS: [id number] MRI HEAD WITH CONTRAST TECHNIQUE: Sagittal T1, T2 axial, T2 axial FLAIR, axial susceptibility weighted imaging, axial diffus ion weighted images, and coronal T2 images were obtained. Pre and post-T1 axial and post T1 coronal i mages. ADC and FSPGR images. CLINICAL INFORMATION: FLOATERS IN VISION, HEADACHE, TINNITUS COMPARISON: None. FINDINGS: No evidence of restricted diffusion to suggest acute ischemia. Ventricular system and basilar cistern s are patent. No suspicious intracranial signal abnormalities. Normal trivedi-white differentiation. Nor mal posterior fossa. Normal vascular flow voids at the skull base. No extra-axial fluid collections. No evidence of mass or mass effect. Paranasal sinuses are well aerated. Mastoid air cells are well ae rated. No hemosiderin on the susceptibly weighted images. Normal optic chiasm and pituitary infundibulum. Te mporal lobes and hippocampal formations are normal in appearance. No abnormal gadolinium enhancement. Normal dural venous sinuses. MR/MR head wo/w con [id number] IMPRESSION: 1. No evidence of restricted diffusion to suggest acute ischemia 2. No suspicious intracranial signal abnormalities. 3. Paranasal sinuses are well aerated. Mastoid air cells are well aerated. 4. No abnormal gadolinium enhancement. 5. No hemosiderin on the susceptibly weighted images.
[2023-12-24] MEDS: gadobenate dimeglumine 20 mL vial IV (17:54)
== END 2023-12-24 16:20 | disposition home or self-care (01) ==
LOC: RAD 16:19
PROVIDERS: PCP Family Medicine; Visit Provider Family Medicine
DX: H43.399 Other vitreous opacities, unspecified eye (principal); R51.9 Headache, unspecified; H93.13 Tinnitus, bilateral
CPT/HCPCS: 70553

== ENCOUNTER 2024-03-13 09:49 | Outpatient (CLI) | payer MEDICAID, SELFPAY ==
--- NOTE | 2024-03-13 09:58 | US_ITS ---
WS: [id number] RIGHT UPPER QUADRANT ULTRASOUND HISTORY: elevated liver enzymes COMPARISON: None available. Liver: 16.8 cm in length. Normal size liver with mild coarse echotexture. No mass or bile duct dilata tion. Portal Vein: Normal hepatopetal flow with monophasic waveform. Gallbladder: Normally distended gallbladder with no stones or wall thickening. CBD: 0.3 cm Pancreas: Not visualized. Right kidney: 11.5 cm in length. Poorly visualized RIGHT kidney. Aorta and IVC: Unremarkable abdominal aorta and IVC. No ascites. Small RIGHT pleural effusion. US/US abdomen limited [id number] IMPRESSION: 1. Normal gallbladder. No cholelithiasis. 2. No intrahepatic duct dilatation. 3. Mild hepatic steatosis. Normal size liver. 4. Small RIGHT pleural effusion.
== END 2024-03-13 09:50 | disposition home or self-care (01) ==
LOC: RAD 09:51
PROVIDERS: PCP Family Medicine; Visit Provider Family Medicine
DX: R74.8 Abnormal levels of other serum enzymes (principal); K76.0 Fatty (change of) liver, not elsewhere classified; J90 Pleural effusion, not elsewhere classified; R93.2 Abnormal findings on diagnostic imaging of liver and biliary tract
CPT/HCPCS: 76705

== ENCOUNTER 2024-03-28 14:30 | Outpatient (CLI) | payer MEDICAID, SELFPAY ==
--- NOTE | 2024-03-28 14:39 | XR_ITS ---
WS: [id number] Exam: XR chest 2V* [id number] Date/Time of Exam: 03/28/2024 2:40 PM Reason For Exam: PLEURAL EFFUSION, LEFT Comparison 09/01/2023. Lungs are clear. Normal cardiomediastinal silhouette and regional bony structures. XR/XR chest 2V* [id number] IMPRESSION: 1. Normal chest.
== END 2024-03-28 14:31 | disposition home or self-care (01) ==
LOC: RAD 14:37
PROVIDERS: PCP Family Medicine; Visit Provider Family Medicine
DX: J90 Pleural effusion, not elsewhere classified (principal)
CPT/HCPCS: 71046

== ENCOUNTER 2025-01-08 10:29 | Outpatient (CLI) | payer MEDICAID, SELFPAY ==
--- NOTE | 2025-01-08 10:39 | US_ITS ---
WS: [id number] ULTRASOUND BREAST BILATERAL TECHNIQUE: Ultrasound bilateral breast focused area of concern. CLINICAL INFORMATION: RASH COMPARISON: None. FINDINGS: RIGHT BREAST: Ultrasound RIGHT breast in the axilla demonstrates a shallow small cystic-appearing complex lesion measuring 8.0 x 6.5 mm extending to the skin surface. This most likely represents a complex sebaceous cyst given history. Biopsy is not recommended due to risk of rupture. No other suspicious findings. LEFT BREAST: No suspicious findings LEFT breast area of concern US/US breast BI limited* [id number] IMPRESSION: BI-RADS 2 benign Recommend annual screening mammography age 40
== END 2025-01-08 10:30 | disposition home or self-care (01) ==
LOC: RAD 10:30
PROVIDERS: PCP Family Medicine; Visit Provider Family Medicine
DX: R21 Rash and other nonspecific skin eruption (principal); L72.3 Sebaceous cyst; N60.81 Other benign mammary dysplasias of right breast
CPT/HCPCS: 76642

== ENCOUNTER → 2025-01-19 12:26 | Outpatient (BNVA) | payer MEDICAID, SELFPAY | PROVIDERS: PCP Family Medicine; Visit Provider Emergency Medicine | DX: R39.9 Unspecified symptoms and signs involving the genitourinary system (principal) | CPT/HCPCS: 81000 ==